=== PATIENT | female | born 1995 | race Hispanic/Latino ===

== ENCOUNTER 2024-09-10 10:37 | Emergency (ER) | payer BC ==
[2024-09-10] VITALS (7 sets, daily range): BP systolic 108–130; BP diastolic 67–84
[~2024-09-10] VITALS: Ht 162.6 cm; Wt 68.0 kg
[~2024-09-10 10:37] MED LIST: ADDERALL XR10 MG PO; INDERAL10 MG PO; LEXAPRO10 MG PO
[2024-09-10] MEDS ORDERED: VENTOLIN HFA108 MCG PO (11:26)
[2024-09-10] MEDS ORDERED: DEXAMETHASON6 MG PO (11:26)
[2024-09-10] MEDS ORDERED: MONTELUKAST SOD10 MG PO (11:26)
== END 2024-09-10 14:01 | disposition home or self-care (01) | DRG 204 ==
LOC: ED 10:37
DX: R05.9 Cough, unspecified (principal); F32.A Depression, unspecified; F41.9 Anxiety disorder, unspecified